=== PATIENT | male | born 1970 | race African-American/Black ===

== ENCOUNTER → 2018-09-24 | Outpatient (CLI) | payer BC, OTHER ==
[~2018-09-24] MED LIST: LISINOPRIL40 MG PO; VICODIN 5-5001 EACH PO
== END ==
LOC: CAT 08:55
DX: K42.9 Umbilical hernia without obstruction or gangrene (principal)

== ENCOUNTER → 2019-01-24 | Outpatient (CLI) | payer OTHER | LOC: CAT 10:35 | DX: Z13.6 Encounter for screening for cardiovascular disorders (principal); I25.10 Atherosclerotic heart disease of native coronary artery without angina pectoris; E78.00 Pure hypercholesterolemia, unspecified ==